=== PATIENT | male | born 1960 | race Caucasian/White ===

== ENCOUNTER 2017-10-04 14:39 | Emergency (ER) | payer BC, MEDICAID ==
[2017-10-04 16:24] LABS: ABS Basophils 0.1 10^3/ul (0-0.2); ABS Eosinophils 0.2 10^3/ul (0-0.6); ABS Lymphocytes 2.3 10^3/ul (1.0-4.8); ABS Monocytes 0.4 10^3/ul (0-0.8); ABS Neutrophils 2.7 10^3/ul (1.5-7.7); ABS Nucleated RBC 0 10^3/ul; Eosinophil % 2.8 % (0-6); Hematocrit 45 % (42-52); Hemoglobin 15.5 g/dl (14.0-18.0); Lymphocyte % 40.4 % (25-47); Mean Corpuscular HGB Conc 34 g/dl (31-36); Mean Corpuscular Hemoglobin 33 pg (27-31); Mean Corpuscular Volume 96 fL (80-94); Mean Platelet Volume 9.1 um3 (7.4-10.4); Nucleated Red Blood Cells % 0; Platelet Count 140 10^3/ul (150-450); Red Blood Count 4.69 10^6/ul (4.00-5.40); Red Cell Distribution Width 14 % (10.5-15); White Blood Count 5.7 10^3/ul (3.5-10.8)
[2017-10-04 16:30] LABS: INR 1.04 (0.77-1.02)
[2017-10-04 16:45] LABS: EGFR Non-African American 73.1 (>60)
--- NOTE | 2017-10-04 17:02 | RAD ---
INDICATION: Expressive aphasia COMPARISON: CT brain September 01, 2015 TECHNIQUE: Noncontrast axial source images were acquired from the skull base to the vertex. FINDINGS: Ventricles/sulci: The ventricles and cisterns are unchanged. There is compensatory dilatation of left lateral ventricle related to encephalomalacia in the left cerebral hemisphere. 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 No acute intracranial findings Intracranial hemorrhage:None. Extra-axial spaces: There are no abnormal extra axial fluid collections or evidence of extra-axial mass. Calvarium: There is no calvarial fracture or other calvarial abnormality. Scalp: There is no evidence of scalp or extracalvarial soft tissue abnormality. Paranasal sinuses/mastoid: The paranasal sinuses and mastoid air cells are clear. Other: Old left MCA distribution infarct. No acute findings. IMPRESSION: NEGATIVE EXAMINATION
--- NOTE | 2017-10-04 17:05 | RAD ---
Indication: Mid abdominal pain /RIGHT upper quadrant pain with eating. Comparison: No relevant prior exams available on the [facility] for comparison. Technique: RIGHT upper quadrant ultrasound. Report: Appropriate direction flow documented in the portal and hepatic veins. 15.5 cm liver is normal in echogenicity. Negative for focal hepatic lesions. Negative for intrahepatic biliary dilatation. 4 mm common bile duct. Adequately distended gallbladder with normal range 3 mm wall is without pathologic finding. Negative for sonographic Will's sign. The pancreas is obscured secondary to bowel gas and body habitus limiting assessment. Negative for ascites. 10.9 x 4.4 x 5.2 cm RIGHT kidney is unremarkable. IMPRESSION: #. No evidence for gallbladder pathology. #. Normal size liver. Negative for sonographic stigmata of fatty infiltration. Negative for focal hepatic lesions. #. The pancreas is obscured secondary to bowel gas and body habitus limiting assessment.
[2017-10-04 17:50] VITALS: BP 151/96
--- NOTE | 2017-10-06 06:44 | ED ---
GI/ HPI - HPI Summary HPI Summary: Patient is a 57-year-old homeless male living in a [facility] in [place] presenting to the ED with a six-month worsening history of abdominal pain associated with eating. History of stroke 3 years ago and has been suffering from expressive aphasia since that time. He states he takes no medications. He endorses pain to the mid epigastric region following eating small amounts of food. He endorses early satiety and states he is "never hungry." He is followed up with his PCP, however his PCP has not run any additional tests. He has no more follow-ups regarding his stroke which he was [facility]. He states his aphasia has not worsened in the past 6 months. Hx of alcohol abuse. Denies any nausea, vomiting, diarrhea. Denies any flank pain or urinary symptoms. While he endorses early satiety and not feeling hungry, he denies any weight loss. - History of Current Complaint Chief Complaint: EDAbdPain Time Seen by Provider: 10/04/17 14:44 Stated Complaint: ABD PAIN Hx Obtained From: Patient Onset/Duration: Worse Since - 6 months Timing: Constant Severity: Moderate Current Severity: Moderate Pain Intensity: 1 Location of Pain: Other - midepigastric pain Associated Signs and Symptoms: Positive: Change in Appetite Alleviating Factor(s): Nothing - Additional Pertinent History Primary Care Physician: Dr. Adrianna Cook - Allergy/Home Medications Allergies/Adverse Reactions: Allergies Allergy/AdvReac Type Severity Reaction Status Date / Time No Known Allergies Allergy Verified 05/26/15 11:21 PMH/Surg Hx/FS Hx/Imm Hx Previously Healthy: Yes Endocrine/Hematology History: Denies: Hx Anticoagulant Therapy Cardiovascular History: Reports: Hx Hypertension Respiratory History: Denies: Hx Asthma Psychiatric History: Reports: Hx Anxiety, Hx Depression, Hx Post Traumatic Stress Disorder, Hx Substance Abuse, Other Psychiatric Issues/Disorders - Insomnia, Night terrors Denies: Hx of Violent Episodes Against Others - Immunization History Hx Pertussis Vaccination: No Immunizations Up to Date: Unable to Obtain/Confirm Infectious Disease History: No Infectious Disease History: Denies: Traveled Outside the [place] in Last 30 Days - Social History Occupation: Unemployed Lives: Alone Alcohol Use: Rare Alcohol Amount: "1 beer every hour for past 2 weeks" Hx Substance Use: Yes Substance Use Type: Reports: Prescribed Hx Tobacco Use: Yes Smoking Status (MU): Light Every Day Tobacco Smoker Review of Systems Constitutional: Negative Negative: Fever, Chills, Skin Diaphoresis Negative: Palpitations, Chest Pain Negative: Shortness Of Breath, Cough Positive: Abdominal Pain. Negative: Vomiting, Diarrhea, Nausea Genitourinary: Negative Positive: no symptoms reported, see HPI Negative: Arthralgia, Myalgia Neurological: Other - expressive aphasia Negative: Headache, Weakness, Paresthesia, Numbness Psychological: Normal All Other Systems Reviewed And Are Negative: Yes Physical Exam Triage Information Reviewed: Yes Vital Signs On Initial Exam: Initial Vitals Temp Pulse Resp BP Pulse Ox 97.8 F 68 16 171/95 96 10/04/17 14:41 10/04/17 14:41 10/04/17 14:41 10/04/17 14:41 10/04/17 14:41 Vital Signs Reviewed: Yes Appearance: Positive: Well-Appearing, Well-Nourished Skin: Positive: Warm, Skin Color Reflects Adequate Perfusion Head/Face: Positive: Normal Head/Face Inspection Eyes: Positive: EOMI, SANDEE, Conjunctiva Clear Neck: Positive: Supple, No Lymphadenopathy Respiratory/Lung Sounds: Positive: Clear to Auscultation, Breath Sounds Present Cardiovascular: Positive: RRR, Pulses are Symmetrical in both Upper and Lower Extremities Abdomen Description: Positive: Nontender, Soft Neurological: Positive: Sensory/Motor Intact, Alert, Oriented to Person Place, Time, Speech Normal Psychiatric: Positive: Normal, Affect/Mood Appropriate AVPU Assessment: Alert Diagnostics - Vital Signs Vital Signs Temp Pulse Resp BP Pulse Ox 10/04/17 17:48 98.2 F 54 16 151/96 10/04/17 17:41 53 13 161/105 10/04/17 17:11 56 15 139/91 10/04/17 17:00 58 22 10/04/17 16:41 18 137/88 10/04/17 16:12 55 15 149/99 10/04/17 16:05 53 18 150/86 10/04/17 14:41 97.8 F 68 16 171/95 96 - Laboratory Lab Results: Lab Results 10/04/17 10/04/17 10/04/17 Range/Units 16:14 16:14 16:14 WBC 5.7 (3.5-10.8) 10^3/ul RBC 4.69 (4.00-5.40) 10^6/ul Hgb 15.5 (14.0-18.0) g/dl Hct 45 (42-52) % MCV 96 H (80-94) fL MCH 33 H (27-31) pg MCHC 34 (31-36) g/dl RDW 14 (10.5-15) % Plt Count 140 L (150-450) 10^3/ul MPV 9.1 (7.4-10.4) um3 Neut % (Auto) 48.2 (38-83) % Lymph % (Auto) 40.4 (25-47) % [place] % (Auto) 7.5 H (0-7) % Eos % (Auto) 2.8 (0-6) % Baso % (Auto) 1.1 (0-2) % Absolute Neuts (auto) 2.7 (1.5-7.7) 10^3/ul Absolute Lymphs (auto) 2.3 (1.0-4.8) 10^3/ul Absolute Monos (auto) 0.4 (0-0.8) 10^3/ul Absolute Eos (auto) 0.2 (0-0.6) 10^3/ul Absolute Basos (auto) 0.1 (0-0.2) 10^3/ul Absolute Nucleated RBC 0 10^3/ul Nucleated RBC % 0 INR (Anticoag Therapy) (0.77-1.02) Sodium 135 (135-145) mmol/L Potassium 4.5 (3.5-5.0) mmol/L Chloride 103 (101-111) mmol/L Carbon Dioxide 24 (22-32) mmol/L Anion Gap 8 (2-11) mmol/L BUN 15 (6-24) mg/dL Creatinine 1.05 (0.67-1.17) mg/dL Est GFR ( Amer) 88.4 (>60) Est GFR (Non-Af Amer) 73.1 (>60) BUN/Creatinine Ratio 14.3 (8-20) Glucose 91 (70-100) mg/dL Lactic Acid 0.9 (0.5-2.0) mmol/L Calcium 9.3 (8.6-10.3) mg/dL Total Bilirubin 1.00 (0.2-1.0) mg/dL AST 15 (13-39) U/L ALT 8 (7-52) U/L Alkaline Phosphatase 60 (34-104) U/L Total Protein 6.5 (6.4-8.9) g/dL Albumin 3.9 (3.2-5.2) g/dL Globulin 2.6 (2-4) g/dL Albumin/Globulin Ratio 1.5 (1-3) Serum Alcohol < 10 (<10) mg/dL 10/04/17 Range/Units 16:14 WBC (3.5-10.8) 10^3/ul RBC (4.00-5.40) 10^6/ul Hgb (14.0-18.0) g/dl Hct (42-52) % MCV (80-94) fL MCH (27-31) pg MCHC (31-36) g/dl RDW (10.5-15) % Plt Count (150-450) 10^3/ul MPV (7.4-10.4) um3 Neut % (Auto) (38-83) % Lymph % (Auto) (25-47) % Mohave % (Auto) (0-7) % Eos % (Auto) (0-6) % Baso % (Auto) (0-2) % Absolute Neuts (auto) (1.5-7.7) 10^3/ul Absolute Lymphs (auto) (1.0-4.8) 10^3/ul Absolute Monos (auto) (0-0.8) 10^3/ul Absolute Eos (auto) (0-0.6) 10^3/ul Absolute Basos (auto) (0-0.2) 10^3/ul Absolute Nucleated RBC 10^3/ul Nucleated RBC % INR (Anticoag Therapy) 1.04 H (0.77-1.02) Sodium (135-145) mmol/L Potassium (3.5-5.0) mmol/L Chloride (101-111) mmol/L Carbon Dioxide (22-32) mmol/L Anion Gap (2-11) mmol/L BUN (6-24) mg/dL Creatinine (0.67-1.17) mg/dL Est GFR ( Amer) (>60) Est GFR (Non-Af Amer) (>60) BUN/Creatinine Ratio (8-20) Glucose (70-100) mg/dL Lactic Acid (0.5-2.0) mmol/L Calcium (8.6-10.3) mg/dL Total Bilirubin (0.2-1.0) mg/dL AST (13-39) U/L ALT (7-52) U/L Alkaline Phosphatase (34-104) U/L Total Protein (6.4-8.9) g/dL Albumin (3.2-5.2) g/dL Globulin (2-4) g/dL Albumin/Globulin Ratio (1-3) Serum Alcohol (<10) mg/dL Result Diagrams: 10/04/17 16:14 10/04/17 16:14 Lab Statement: Any lab studies that have been ordered have been reviewed, and results considered in the medical decision making process. GIGU Course/Dx - Course Course Of Treatment: During the course of treatment, patient is evaluated and noted to be severely expressive aphasic. He is able to state certain words, but is intermittent in his ability to express his chief complaint. It appears he is having pain following eating and early satiety. He has not seen a GI specialist. Ultrasound Gallbladder obtained which is unremarkable. Brain CT shows no new findings compared to previous CT. I've advised the patient follow up with a GI specialist. He will also be discharged with a trial of omeprazole. - Diagnoses Provider Diagnoses: Early satiety, Midepigastric pain Discharge - Sign-Out/Discharge Documenting (check all that apply): Patient Departure - Discharge Plan Condition: Stable Disposition: HOME Prescriptions: Omeprazole 40 mg PO DAILY #30 capsule. Patient Education Materials: Omeprazole (By mouth) Referrals: No Primary Care Phys,NOPCP [Primary Care Provider] - Too Ulrich MD [Medical Doctor] - Additional Instructions: Please follow-up with Dr. Ulrich and your doctor Again as discussed, writing down your thoughts beforehand may help with the communication between you and your doctor or you and the GI specialist Omeprazole 40mg once daily x 30 days If this does not improve your symptoms after 2 weeks - you may stop taking the medication - Billing Disposition and Condition Condition: STABLE Disposition: Home
== END 2017-10-04 17:48 | disposition home or self-care (01) ==
LOC: ED 14:39
DX: R10.13 Epigastric pain (principal); R68.81 Early satiety; I69.320 Aphasia following cerebral infarction; F17.200 Nicotine dependence, unspecified, uncomplicated; Z59.0 Homelessness; Z86.59 Personal history of other mental and behavioral disorders
CPT/HCPCS: 36415; 70450; 76705; 80053; 80320; 83605; 85025; 85610; 99282; G0480

== ENCOUNTER 2017-12-02 15:44 | Observation (INO) | payer OTHER ==
--- NOTE | 2017-12-02 16:14 | ED ---
Syncope/Near Syncope - HPI Summary HPI Summary: This pt is a 57 y/o male presenting to [facility] via EMS for near syncopal episode today. Pt reports he was in the grocery store, [employer], with a cart when he became dizzy. He states he sat down. Denies LOC, syncope, or fall. Pt currently reports neck pain and headache. Denies fever, chills, chest pain, palpitations, SOB. Pt lives at home alone. PMHx includes stroke (3 years ago with right sided weakness and aphasia), HTN. Pt takes medications for chronic pain on the right side of body s/p stroke. - History Of Current Complaint Time Seen by Provider: 12/02/17 15:48 Hx Obtained From: Patient Onset/Duration: Sudden Onset, Still Present Timing: Constant Context: Other - dizziness Associated Head Trauma: No Aggravating Factor(s): Nothing Alleviating Factor(s): Nothing Associated Signs And Symptoms: Dizzy, Headache, Pain - chronic, Other - POS: neck pain. NEG: chest pain, SOB, palpitations - Allergies/Home Medications Allergies/Adverse Reactions: Allergies Allergy/AdvReac Type Severity Reaction Status Date / Time No Known Allergies Allergy Verified 05/26/15 11:21 Home Medications: Home Medications Gabapentin CAP(*) [Neurontin 400 mg CAP(*)] 800 mg PO TID 12/02/17 [History Confirmed 12/02/17] Lisinopril TAB* [Prinivil TAB*] 20 mg PO DAILY 12/02/17 [History Confirmed 12/02] PMH/Surg Hx/FS Hx/Imm Hx Endocrine/Hematology History: Denies: Hx Anticoagulant Therapy Cardiovascular History: Reports: Hx Hypertension Respiratory History: Denies: Hx Asthma Neurological History: Reports: Hx CVA Psychiatric History: Reports: Hx Anxiety, Hx Depression, Hx Post Traumatic Stress Disorder, Hx Substance Abuse, Other Psychiatric Issues/Disorders - Insomnia, Night terrors Denies: Hx of Violent Episodes Against Others Infectious Disease History: Denies: Traveled Outside the [place] in Last 30 Days - Family History Known Family History: Positive: Unknown - pt does not know - Social History Alcohol Use: Rare Alcohol Amount: "1 beer every hour for past 2 weeks" Hx Substance Use: Yes Substance Use Type: Reports: Prescribed Hx Tobacco Use: Yes Smoking Status (MU): Light Every Day Tobacco Smoker Review of Systems Negative: Fever, Chills Negative: Palpitations, Chest Pain Negative: Shortness Of Breath Musculoskeletal: Other - POS: neck pain Neurological: Other - POS: dizziness Positive: Headache. Negative: Syncope All Other Systems Reviewed And Are Negative: Yes Physical Exam - Summary Physical Exam Summary: VITAL SIGNS: Reviewed. GENERAL: Patient is a well-developed and nourished male who is lying comfortable in the stretcher. Patient is not in any acute respiratory distress. Pt is disheveled. HEAD AND FACE: No signs of trauma. No ecchymosis, hematomas or skull depressions. No sinus tenderness. EYES: PERRLA, EOMI x 2, No injected conjunctiva, no nystagmus. EARS: Hearing grossly intact. Ear canals and tympanic membranes are within normal limits. MOUTH: Oropharynx within normal limits. He has dry mouth. NECK: Supple, trachea is midline, no adenopathy, no JVD, no carotid bruit, no c- spine tenderness, neck with full ROM. CHEST: Symmetric, no tenderness at palpation LUNGS: Clear to auscultation bilaterally. No wheezing or crackles. CVS: Regular rate and rhythm, S1 and S2 present, no murmurs or gallops appreciated. ABDOMEN: Soft, non-tender. No signs of distention. No rebound, no guarding, and no masses palpated. Bowel sounds are normal. EXTREMITIES: FROM in all major joints, no edema, no cyanosis or clubbing. NEURO: Alert and oriented x 3. No acute neurological deficits. Pt has speech aphasia secondary to stroke 3 years ago. SKIN: Dry and warm GCS: 15 Triage Information Reviewed: Yes Vital Signs Reviewed: Yes Diagnostics - Laboratory Result Diagrams: 12/02/17 16:14 12/02/17 16:14 Lab Statement: Any lab studies that have been ordered have been reviewed, and results considered in the medical decision making process. - Radiology Chest XR Xray Interpretation: No Acute Changes - IMPRESSION: No evidence for acute finding. Dr. Barahona has reviewed this report. Radiology Interpretation Completed By: Radiologist - CT Brain CT CT Interpretation: No Acute Changes - IMPRESSION: 1. No evidence for acute intracranial abnormality. 2. Old left middle cerebral artery infarct. Dr. Barahona has reviewed this report. CT Interpretation Completed By: Radiologist - EKG 16:04 Cardiac Rate: NL - at 73 bpm EKG Rhythm: Sinus Rhythm EKG Interpretation: No ST elevations. Course/Dx Assessment/Plan: This pt is a 57 y/o male presenting to [facility] via EMS for near syncopal episode today. Pt reports he was in the grocery store, [employer], with a cart when he became dizzy. He states he sat down. Denies LOC, syncope, or fall. Pt currently reports neck pain and headache. Denies fever, chills, chest pain, palpitations, SOB. Pt lives at home alone. PMHx includes stroke (3 years ago with right sided weakness and aphasia), HTN. Pt takes medications for chronic pain on the right side of body s/p stroke. Blood work without any significant abnormality except for creatinine level of 1.33, glucose 128, troponin 0.01. Serum alcohol is less than 10. Chest x-ray impression: No evidence for acute findings. Head CT impression: No evidence for acute intracranial abnormality. Old left middle cerebral artery infarct. In the ED course the patient was given IV fluids, the patient seems to be hemodynamically stable. But because of his comorbidities and syncope I discussed the case with Dr. Hatfield from the hospitalist services and he accepted the patient for admission. Patient is hemodynamically stable, alert and oriented x3. - Diagnoses Differential Diagnosis/HQI/PQRI: Positive: Coronary Artery Disease, Dysrhythmia , Transient Ischemic Attack, Vasovagal Episode Provider Diagnoses: Syncope - Physician Notifications Discussed Care of Patient With: Stephen Hatfield - hospitalist Time Discussed With Above Provider: 16:55 Instructed by Provider To: Admit As Inpatient Discharge - Sign-Out/Discharge Documenting (check all that apply): Patient Departure - Admit to [facility] All imaging exams completed and their final reports reviewed: Yes - Discharge Plan Condition: Stable Disposition: ADMITTED TO [facility] - Attestation Statements Document Initiated by Scribe: Yes Documenting Scribe: Magaly Suárez Provider For Whom Scribe is Documenting (Include Credential): Jonnie Barahona MD Scribe Attestation: Magaly Pollack, scribed for Jonnie Barahona MD on 12/02/17 at 1836.
[2017-12-02 16:35] LABS: ABS Basophils 0 10^3/ul (0-0.2); ABS Eosinophils 0.1 10^3/ul (0-0.6); ABS Lymphocytes 1.3 10^3/ul (1.0-4.8); ABS Monocytes 0.4 10^3/ul (0-0.8); ABS Neutrophils 5.9 10^3/ul (1.5-7.7); ABS Nucleated RBC 0 10^3/ul; Eosinophil % 0.8 % (0-6); Hematocrit 51 % (42-52); Hemoglobin 17.5 g/dl (14.0-18.0); Lymphocyte % 17.3 % (25-47); Mean Corpuscular HGB Conc 34 g/dl (31-36); Mean Corpuscular Hemoglobin 33 pg (27-31); Mean Corpuscular Volume 97 fL (80-94); Mean Platelet Volume 9.1 um3 (7.4-10.4); Nucleated Red Blood Cells % 0.1; Platelet Count 157 10^3/ul (150-450); Red Blood Count 5.25 10^6/ul (4.00-5.40); Red Cell Distribution Width 14 % (10.5-15); White Blood Count 7.7 10^3/ul (3.5-10.8)
--- NOTE | 2017-12-02 16:40 | RAD ---
INDICATION: Syncope. COMPARISON: Comparison is made with a prior CT of the brain from October 04, 2017. TECHNIQUE: Contiguous axial sections of the brain were obtained from the skull base to the vertex without contrast. FINDINGS: The cisterns and sulci appear to be within normal limits. There is a moderate to large area of encephalomalacia present on the left side involving the left temporal and parietal lobes which is unchanged most consistent with an old left middle cerebral artery infarct. No other focal abnormality or mass effect is seen. There is no evidence for hemorrhage. No significant focal osseous abnormality is seen. The visualized portion of the paranasal sinuses and mastoid air cells appear clear. IMPRESSION: 1. NO EVIDENCE FOR ACUTE INTRACRANIAL ABNORMALITY. 2. OLD LEFT MIDDLE CEREBRAL ARTERY INFARCT.
--- NOTE | 2017-12-02 16:41 | RAD ---
INDICATION: Syncope. COMPARISON: Comparison is made with a prior study from May 26, 2015. TECHNIQUE: Dual-energy PA and lateral views of the chest were obtained. FINDINGS: The heart is within normal limits in size. Mediastinal and hilar contours appear within normal limits. The lungs are hyperinflated and clear. No pleural effusion is seen. IMPRESSION: NO EVIDENCE FOR ACUTE FINDING.
[2017-12-02 16:47] LABS: EGFR Non-African American 55.6 (>60)
[2017-12-02] MEDS ORDERED: Aspirin 81 mg CHEW TAB* 81 MG TAB.CHEW PO ONE (17:41)
[2017-12-02] MEDS ORDERED: Aspirin 81 mg CHEW TAB* 81 MG TAB.CHEW ONE (17:58)
[2017-12-02] MEDS: Gabapentin CAP(*) 400 MG PO SCH (19:58)
[2017-12-02] MEDS: ALPRAZolam TAB* 0.25 MG PO PRN (20:02)
[2017-12-02] MEDS: Heparin VIAL(*) 5000 UNITS/ML VIAL (FIVE THOUSAND) SUBCUT SCH (20:07)
--- NOTE | 2017-12-02 21:01 | RAD ---
EXAM: MR Head Without Intravenous Contrast CLINICAL HISTORY: 57 years old, male; Signs and symptoms; Dizziness and speech disturbance; Aphasia; Patient HX: Pt has an episode today when he became very plae and nearly fainted. Pt also experiencing aphasia. HX of CVA TECHNIQUE: Magnetic resonance images of the head/brain without intravenous contrast in multiple planes. COMPARISON: BRAIN WO CT BRAIN WO 12/02/2017 4:30 PM FINDINGS: Brain: Encephalomalacia in the left cervical hemisphere, compatible with chronic large left MCA territory infarct. No intracranial hemorrhage or extra-axial fluid collection. No evidence of mass effect or midline shift. No restricted diffusion to suggest acute infarct. Ventricles: Ex vacuo dilatation of the left lateral ventricle. No other hydrocephalus. Bones/joints: Unremarkable. Sinuses: Unremarkable as visualized. No acute sinusitis. Mastoid air cells: Unremarkable as visualized. No mastoid effusion. Orbits: Unremarkable as visualized. IMPRESSION: 1. No MR evidence of acute infarct. 2. Chronic large left MCA territory infarct. To contact [facility] with a general question: [facility] - [phone] For direct physician to physician contact: Physician Hotline - [phone] [facility] ([facility] Facility ID #[id number])
--- NOTE | 2017-12-02 22:46 | HP ---
ADMISSION HISTORY AND PHYSICAL: DATE OF ADMISSION: 12/02/17 PRIMARY CARE PROVIDER: None. ATTENDING FOR THIS ADMISSION: Stephen Hatfield MD * (DICTATED BY TSERING NOBLE NP) CHIEF COMPLAINT: Dizziness with some chest pressure. HISTORY OF PRESENT ILLNESS: This is a 57-year-old male patient with past medical history of hypertension, CVA, and depression that presented when emergency services were called when the patient was in [facility], he described having a feeling of dizziness and spinning in his head and then also described a diffuse pressure across his chest. A bystander assisted the patient to sitting down on the floor. She was afraid he was going to fall over and 911 was called. Ambulance services brought the patient in, placing him on oxygen on the way. The patient states the oxygen did help his symptoms and he felt better after the oxygen mask was placed on his face. For these reasons, we were asked to evaluate the patient for admission. PAST MEDICAL HISTORY: Significant for: 1. Hypertension. 2. CVA in 2016. 3. Depression. 4. Remote history of alcohol abuse. PAST SURGICAL HISTORY: Significant for: 1. ORIF of the left hip. 2. Appendectomy. 3. Hernia repair. MEDICATIONS: At home include: 1. Lisinopril 20 mg daily. 2. Gabapentin 800 mg 3 times a day. It does appear in the record that the patient was on an antidepressant and anxiolytics, currently not taking. The patient does express that he does not have a primary care provider and is having difficulty obtaining his medications. ALLERGIES: No known drug allergies. FAMILY HISTORY: Unable to obtain. SOCIAL HISTORY: The patient is a daily everyday smoker, 1 pack per day. Alcohol, the patient states his last drink was 5 or 6 days ago and before that it was greater than 1 year ago. Healthcare proxy, none. The patient states that he lives by himself and he has no family, friends, or other people for which we can call in case of emergency. REVIEW OF SYSTEMS: The patient is feeling what he describes as better now. Denies dizziness. Denies chest pain. Denies shortness of breath. Denies any nausea or vomiting. He has some baseline pain down the right lower extremity secondary to neuropathic changes after his stroke, which is at his baseline. No further arthralgias or myalgias and no further constitutional complaints. PHYSICAL EXAMINATION GENERAL: The patient is alert, very disheveled, looking somewhat tearful at times. VITAL SIGNS: Blood pressure 127/77, heart rate 76, O2 saturation 96% on room air, respiratory rate 16, temperature of 97.7. HEENT: The patient is atraumatic, normocephalic. PERRLA. Anicteric sclerae. Oral mucosa is moist. Tongue is midline. NECK: Supple, nontender. No JVD noted. No carotid bruits auscultated. LUNGS: Clear bilaterally to auscultation with good air entry. No wheezing, rhonchi, or rales noted. CARDIOVASCULAR: S1, S2 present. No murmurs, gallops, or rubs noted. Rate and rhythm are regular. ABDOMEN: Soft, nontender, nondistended. Positive bowel sounds in all 4 quadrants. : Deferred. MUSCULOSKELETAL: There is no clubbing, no cyanosis, and no edema. He does have some palpable pain down the right thigh. Seems to be hypersensitive to any tactile stimulation on the skin on that side. Again, this is his baseline. NEUROLOGIC: He has significant expressive aphasia. Can make his needs known, but does express word searching. Per the patient's report, this is his current baseline and he does not feel it is any worse at this time. PSYCHIATRIC: He is cooperative and appropriate, albeit tearful and does appear to be frustrated and depressed with his current situation. LABORATORY DATA: WBC 7.7, RBC 5.25, hemoglobin 17.5, hematocrit 51, MCV 97, MCH 33, platelets 157,000. Sodium 138, potassium 3.5, chloride 102, CO2 of 28, BUN 12, creatinine 1.33, and glucose 128. Lactic acid 1.8. Calcium 9.9. Magnesium 2.1. Bilirubin 1.10, AST 14, ALT 12, alk phos 72. Ammonia 38. Creatine kinase 39. Troponin is negative at 0.00. BNP is 10. Total protein 6.8. Albumin 4.3, globulin 2.5, and TSH 0.64. Serum alcohol level is less than 10. APTT is 27.8. IMAGING: Chest x-ray dated 12/02/17 shows no acute cardiopulmonary process. CAT scan of the brain also dated today shows cisterns and sulci appear to be within normal limits. There was a moderate to large area of encephalomalacia present on the left side involving the left temporal and parietal lobes which is unchanged, most consistent with an old left middle cerebral artery infarct. No other focal abnormality or mass effect is seen. There was no evidence for hemorrhage. No significant focal osseous abnormality is seen. The visualized portion of paranasal sinuses, mastoid air cells appear clear. No new or acute pathology noted on the CAT scan of the brain. IMPRESSION: This is a 57-year-old male with history significant for expressive aphasia as a late deficit from previous cerebrovascular accident who presents to the emergency department with a complaint of dizziness and some chest pressure, which resolved with placement of oxygen. PLAN: The patient has been admitted to observation service on telemetry. DIAGNOSES: 1. Dizziness and chest pressure. Etiology unclear. At this point, I feel because the patient has not had a recent cardiac workup and has not had followup in the community, it would be warranted to do a stress test and echocardiogram. The patient's EKG does not show any acute findings. There are no acute ST segment changes and it appears he has similar EKG in 2016 but it does look like he has had an inferior infarct and old Q waves in leads II, III and aVF. Again, this is not a sudden change from 2016. However, the patient has not had any followup in the community. So, we will also get an echocardiogram to evaluate his left ventricular function. He has had a CAT scan already of the brain. It is difficult to tell whether this episode is a neurologic event secondary to his encephalomalacia or cardiac event, but given his history of this large cerebrovascular accident and the patient has not been on aspirin or any sort of anticoagulation in the past or any kind of antiplatelet therapy, I feel that an MRI in the morning would also be helpful. If there are any acute findings on the MRI or his cardiac workup, we can involve neurology and/or cardiology to assist. 2. For his hypertension, we will keep him on his lisinopril. I have added baby aspirin. 3. For his history of depression, he was on an SSRI in the past but not currently and also had admission to [facility] in the past. He does appear anxious and tearful. I will order some Xanax low dose to assist with some of his anxiety. Diet. He can have a heart healthy diet and then n.p.o. after midnight in anticipation of a stress test. Fluids, electrolytes, and nutrition. The patient appears euvolemic. Electrolytes are within normal range and diet as stated above. Activity. He can be out of bed as tolerated. DVT prophylaxis. Heparin 5000 units q.8 hours. subQ Code status. The patient is a full code. I also would like to involve social work on this case. The patient is very disheveled. It does appear that he has not had good hygiene. His hair is matted. His fingernails are long and dirty. The patient states he has no support and nobody to help, so I think getting social work involved to ensure that after this workup is complete that the patient is going to have a safe discharge and have the resources that he needs in the community. The rest of the patient's course will be determined by further diagnostics, laboratories, and any other input from other providers as warranted during this admission. This plan has been coordinated with Dr. Hatfield, the attending physician on this case. Time Spent: 45 minutes. TSERING NOBLE NP [id number]/CPS #: [id number] GERALD
[2017-12-03] MEDS: Heparin VIAL(*) 5000 UNITS/ML VIAL (FIVE THOUSAND) SUBCUT SCH ×3 (05:16→20:10)
[2017-12-03] MEDS: Omeprazole CAP* 20 MG PO SCH (05:16)
[2017-12-03] MEDS: Acetaminophen TAB* 325 MG PO PRN ×2 (05:17→20:55)
[2017-12-03] MEDS ORDERED: NS 0.9% 1000 ML* 1,000 ML IV SCH (05:45)
[2017-12-03] MEDS: Lisinopril TAB* 10 MG PO SCH (07:38)
[2017-12-03] MEDS: Gabapentin CAP(*) 400 MG PO SCH ×3 (07:38→20:09)
[2017-12-03] MEDS ORDERED: Regadenoson* 0.4 MG/5 ML SYRINGE ONE (09:50)
--- NOTE | 2017-12-03 11:56 | RAD ---
Edited for charges. INDICATION: Chest pressure, dizziness. COMPARISON: There are no relevant prior studies available for comparison. Technique: A single day myocardial perfusion stress study was performed. Initially the resting study was performed. The patient was given an intravenous injection of 10.9 mCi of technetium 99m tetrofosmin and and the heart was imaged in multiple projections. The patient returned later in the day and under the direction of Dr. Lowry, the patient was given intervenous injection of Lexiscan. Subsequently the patient was given intravenous injection of 25.3 mCi of technetium 99m tetrofosmin and the heart was imaged in multiple projections. Images were reconstructed in the axial, sagittal and coronal planes and in a 3- D format. FINDINGS: There appears to be normal wall motion and myocardial thickening. The left ventricular ejection fraction was calculated to be 64%. Review of the images demonstrates decreased activity in the inferior wall on both the post pharmacologic stress and resting images which is no longer present on the attenuation corrected images consistent with attenuation artifact. No other focal abnormalities are seen. IMPRESSION: NO EVIDENCE FOR INFARCT OR ISCHEMIA. ASSESSMENT: Low risk. Based on imaging criteria from ACC/AHA 2002 Guideline Update for the Management of Patients With Chronic Stable Angina Table 23. Noninvasive Risk Stratification. MTDD
[2017-12-03] MEDS: Sucralfate TAB* 1 GM PO SCH ×3 (14:18→23:32)
--- NOTE | 2017-12-03 17:36 | PN ---
Subjective Date of Service: 12/03/17 Interval History: Patient seen and examined. Pending ECHO completion, seems to be improved today. Denies chest pain, no dizziness, no further complaints. Objective Active Medications: Acetaminophen (Tylenol Tab*) 650 mg PO Q6H PRN PRN Reason: FEVER/HEADACHE Last Admin: 12/03/17 05:17 Dose: 650 mg Alprazolam (Xanax Tab*) 0.25 mg PO BID PRN PRN Reason: ANXIETY Last Admin: 12/02/17 20:02 Dose: 0.25 mg Gabapentin (Neurontin Cap(*)) 800 mg PO TID [facility] Last Admin: 12/03/17 13:13 Dose: 800 mg Heparin Sodium (Porcine) (Heparin Vial(*)) 5,000 units SUBCUT Q8HR [facility] Last Admin: 12/03/17 13:13 Dose: 5,000 units Lisinopril (Prinivil Tab*) 20 mg PO DAILY [facility] Last Admin: 12/03/17 07:38 Dose: 20 mg Omeprazole (Prilosec Cap*) 20 mg PO DAILY@0600 [facility] Last Admin: 12/03/17 05:16 Dose: 20 mg Sucralfate (Carafate*) 1 gm PO QID [facility] Last Admin: 12/03/17 14:18 Dose: 1 gm Vital Signs - 8 hr 12/03/17 12/03/17 11:33 13:13 Temperature 98.8 F Pulse Rate 63 Respiratory 20 18 Rate Blood Pressure 117/73 (mmHg) O2 Sat by Pulse 100 Oximetry Oxygen Devices in Use Now: None Appearance: alert, NAD Eyes: No Scleral Icterus, PERRLA Ears/Nose/Mouth/Throat: NL Teeth, Lips, Gums, Mucous Membranes Moist Neck: NL Appearance and Movements; NL JVP, Trachea Midline Respiratory: Symmetrical Chest Expansion and Respiratory Effort, Clear to Auscultation Cardiovascular: NL Sounds; No Murmurs; No JVD, RRR Abdominal: NL Sounds; No Tenderness; No Distention Extremities: No Edema, No Clubbing, Cyanosis Neurological: Alert and Oriented x 3, - - chronic neuropathic pain right side Nutrition: Taking PO's Result Diagrams: 12/02/17 16:14 12/02/17 16:14 Diagnostic Imaging: Patient Name: TIFFANI TRAN Medical Record#: [id number] Ordering Physician: Cele Fernandes [employer] Acct.#: [id number] : 1960 Age: 57 Sex: M Location: [address] [place] [address] Ex[facility] Date: 12/02/171805 ADM Status: ADM Prashanth Order Information: MRI BRAIN W/O Accession Number: [id number] CPT: 46141 EXAM: MR Head Without Intravenous Contrast CLINICAL HISTORY: 57 years old, male; Signs and symptoms; Dizziness and speech disturbance; Aphasia; Patient HX: Pt has an episode today when he became very plae and nearly fainted. Pt also experiencing aphasia. HX of CVA TECHNIQUE: Magnetic resonance images of the head/brain without intravenous contrast in multiple planes. COMPARISON: BRAIN WO CT BRAIN WO 12/02/2017 4:30 PM FINDINGS: Brain: Encephalomalacia in the left cervical hemisphere, compatible with chronic large left MCA territory infarct. No intracranial hemorrhage or extra-axial fluid collection. No evidence of mass effect or midline shift. No restricted diffusion to suggest acute infarct. Ventricles: Ex vacuo dilatation of the left lateral ventricle. No other hydrocephalus. Bones/joints: Unremarkable. Sinuses: Unremarkable as visualized. No acute sinusitis. Mastoid air cells: Unremarkable as visualized. No mastoid effusion. Orbits: Unremarkable as visualized. IMPRESSION: 1. No MR evidence of acute infarct. 2. Chronic large left MCA territory infarct. Patient Name: TIFFANI TRAN Medical Record#: [id number] Ordering Physician: Cele Fernandes [employer] Acct.#: [id number] : 1960 Age: 57 Sex: M Location: [address] [place], [place] [address] Exam Date: 12/03/171742 ADM Status: ADM Prashanth Order Information: NUCLEAR CARDIAC STRESS TEST Accession Number: [id number] CPT: 56044 INDICATION: Chest pressure, dizziness. COMPARISON: There are no relevant prior studies available for comparison. Technique: A single day myocardial perfusion stress study was performed. Initially the resting study was performed. The patient was given an intravenous injection of 10.9 mCi of technetium 99m tetrofosmin and and the heart was imaged in multiple projections. The patient returned later in the day and under the direction of Dr. Lowry, the patient was given intervenous injection of Lexiscan. Subsequently the patient was given intravenous injection of 25.3 mCi of technetium 99m tetrofosmin and the heart was imaged in multiple projections. Images were reconstructed in the axial, sagittal and coronal planes and in a 3- D format. FINDINGS: There appears to be normal wall motion and myocardial thickening. The left ventricular ejection fraction was calculated to be 64%. Review of the images demonstrates decreased activity in the inferior wall on both the post pharmacologic stress and resting images which is no longer present on the attenuation corrected images consistent with attenuation artifact. No other focal abnormalities are seen. IMPRESSION: NO EVIDENCE FOR INFARCT OR ISCHEMIA. ASSESSMENT: Low risk. Based on imaging criteria from ACC/AHA 2002 Guideline Update for the Management of Patients With Chronic Stable Angina Table 23. Noninvasive Risk Stratification. <Electronically signed by Sachin Herring MD in OV> 12/03/17 1153 Dictated By: Sachin Herring MD Dictated Date/Time: 12/03/17 1153 Transcribed Date/Time: 12/03/17 1147 Copy to: Assess/Plan/Problems-Billing Assessment: This is a 57 year old male with history of large CVA in the past that presents with chest pressure and near syncopal event. - Patient Problems (1) Near syncope Comment: - Imaging as above, no acute neuro pathology - Large area of encephalomalacia from previous CVA - Pending ECHO, stress test is low risk (2) Depressive disorder Onset Date: 02/23/15 Code(s): F32.9 - MAJOR DEPRESSIVE DISORDER, SINGLE EPISODE, UNSPECIFIED SNOMED Code(s): 33659351 Comment: - Appears to be related to social issues and residual stroke deficits - Social work consulted, there is an open APS case with rehabilitation case coordinator assigned - Popeye RONDON (3) History of cerebrovascular accident with residual deficit Code(s): I69.30 - UNSPECIFIED SEQUELAE OF CEREBRAL INFARCTION SNOMED Code(s): 999172112 Comment: - Speech/swallow eval, as patient states he has difficulty eating - PPI daily and carafate added before meals - Regular diet recommended by speech - Nutrition following, high risk for malnutrition but unable to ascertain base weight - Continue gabapentin TID for neuropathic pain - Unclear as to whether patient was recommended to be on anti-platelet therapy - Will given aspirin, recommend ASA at discharge Status and Disposition: Coordinate discharge with social work to ensure APS will meet patient at his trailer and assist with resources and medications for safe discharge. Recommend follow up with [facility] and find a PCP to follow in the community.
[2017-12-03 18:14] LABS: Urine Appearance Clear; Urine Blood Negative (Negative); Urine Color Yellow; Urine Ketones Negative (Negative); Urine Protein Negative (Negative); Urine Specific Gravity 1.006 (1.010-1.030); Urine Urobilinogen Negative (Negative)
--- NOTE | 2017-12-03 18:34 | ECHO ---
Patient: TIFFANI TRAN [facility] Rec#: [id number] : 1960 Date: 12/03/2017 Age: 57y Height: 178 cm / 70.1 in Weight: 73 kg / 160.9 lbs Sex: M BSA: 1.9 Room#: [facility] Admit Date#: 12/02/2017 Type: Inpatient Referring: Cele Bernard Reading: Flaco García DO Family Consultant: Ernestina Mckenzie RDCS Transthoracic Echocardiogram Indication: CP/ Near Syncope BP: 108/82 HR: 54 Rhythm: Bradycardia Findings History: CVA,HTN,anxiety/depression,PTSD,substance abuse,ETOH abuse, smoker. Technical Comments: The study quality is fair. Completed at 1500. The study is technically limited due to the patient's smoking history. Left Ventricle: The left ventricular chamber size is normal. Mild concentric left ventricular hypertrophy is observed. Global left ventricular wall motion and contractility are within normal limits. There is normal left ventricular systolic function. The estimated ejection fraction is 60-65%. There is no consistent Doppler evidence of clinically significant diastolic dysfunction. Left Atrium: The left atrial chamber size is normal. Right Ventricle: The right ventricular chamber size and systolic function are within normal limits. Right Atrium: The right atrial cavity size is normal. Aortic Valve: The aortic valve is trileaflet. There is mild aortic regurgitation. There is no evidence of aortic stenosis. Mitral Valve: The mitral valve leaflets are mildly thickened. There is a trace of mitral regurgitation. There is no evidence of mitral stenosis. Tricuspid Valve: The tricuspid valve leaflets are normal. There is trace to mild tricuspid regurgitation. No pulmonary hypertension is noted. There is no tricuspid stenosis. Pulmonic Valve: The pulmonic valve appears normal in structure and function. There is no evidence of pulmonic regurgitation. There is no pulmonic stenosis. Pericardium: The pericardium appears normal. Aorta: There is mild dilatation of the ascending aorta. There is no dilatation of the aortic arch. There is moderate dilatation of the aortic root. Pulmonary Artery: The main pulmonary artery is not well visualized. Venous: The venous system is not well visualized. Conclusions The left ventricular chamber size is normal. Mild concentric left ventricular hypertrophy is observed. Global left ventricular wall motion and contractility are within normal limits. There is normal left ventricular systolic function. The estimated ejection fraction is 60-65%. The left atrial chamber size is normal. The right ventricular chamber size and systolic function are within normal limits. No more than mild valvular regurgitation noted There is mild dilatation of the ascending aorta. There is moderate dilatation of the aortic root. None prior for comparison at time of interpretation Measurements Name Value Normal Range RVIDd (AP) 2D 2.7 cm (0.9 - 2.6) RVDdMajor (2D) 2.7 cm (2.2 - 4.4) RAd ISD 4CH 4.9 cm (3.4 - 4.9) RA (A4C)W 3.5 cm (2.9 - 4.6) IVSd (2D) 1 cm (0.6 - 1) LVPWd (2D) 1.05 cm (0.6 - 1) LVIDd (2D) 4.4 cm (3.6 - 5.4) LVIDs (2D) 4.1 cm - Aortic Annulus 2.4 cm (1.4 - 2.6) Ao root diameter (2D) 4.5 cm (2.1 - 3.5) Ascending Ao 3.8 cm (2.1 - 3.4) Aortic arch 2.8 cm (1.8 - 3.4) Descending Ao 0.9 cm - LA dimension (AP) 2D 2.8 cm (2.3 - 3.8) LAd ISD 4CH 4.1 cm (2.9 - 5.3) LA ISD 4CH W 3.6 cm (2.5 - 4.5) Name Value Normal Range LA ESV SP 4CH (A/L) 13 ml - LA ESV SP 2CH (A/L) 18 ml - LA ESV BP (A/L) index 15.3 ml/m2 - Name Value Normal Range MV E-wave Vmax 0.7 m/sec - MV deceleration time 341 msec - MV A-wave Vmax 0.8 m/sec - MV E:A ratio 0.9 ratio - LV septal e' Vmax 0.08 m/sec - LV lateral e' Vmax 0.06 m/sec - LV E:e' septal ratio 8.75 ratio - LV E:e' lateral ratio 11.67 ratio - Name Value Normal Range AV Vmax 1.1 m/sec - AV VTI 25 cm - AV peak gradient 5 mmHg - AV mean gradient 2 mmHg - LVOT Vmax 0.9 m/sec - LVOT VTI 18.5 cm - LVOT peak gradient 3 mmHg - LVOT mean gradient 1 mmHg - AR PHT 300 msec - Name Value Normal Range TR Vmax 2.2 m/sec - TR peak gradient 19 mmHg - RAP 8 mmHg - RVSP 27 mmHg - Name Value Normal Range PV Vmax 0.8 m/sec - PV peak gradient 2 mmHg -
[2017-12-03] MEDS: Aspirin 81 mg CHEW TAB* 81 MG TAB.CHEW PO SCH (20:09)
[2017-12-03] MEDS: ALPRAZolam TAB* 0.25 MG PO PRN (20:56)
[2017-12-04] MEDS: Omeprazole CAP* 20 MG PO SCH (04:59)
[2017-12-04] MEDS: Heparin VIAL(*) 5000 UNITS/ML VIAL (FIVE THOUSAND) SUBCUT SCH ×3 (05:00→21:46)
[2017-12-04] MEDS ORDERED: Pneumococcal *Vac Polyvalent 0.5 ML VIAL IM ONE (09:00)
[2017-12-04] MEDS: Aspirin 81 mg CHEW TAB* 81 MG TAB.CHEW PO SCH (09:03)
[2017-12-04] MEDS: Gabapentin CAP(*) 400 MG PO SCH ×3 (09:04→21:45)
[2017-12-04] MEDS: Lisinopril TAB* 10 MG PO SCH (09:05)
[2017-12-04] MEDS: Sucralfate TAB* 1 GM PO SCH ×4 (11:31→23:40)
--- NOTE | 2017-12-04 17:10 | PN ---
Subjective Date of Service: 12/04/17 Interval History: patient with expressive aphasia, difficulty with word finding . Denies MERRILL or dizziness. Denies chest pain or shortness of breath. denies abd pain n/v/d. Nursing staff reports that patient reports he wants to kill himself. Family History: Unchanged from Admission Social History: Unchanged from Admission Past Medical History: Unchanged from Admission Objective Active Medications: Acetaminophen (Tylenol Tab*) 650 mg PO Q6H PRN PRN Reason: FEVER/HEADACHE Last Admin: 12/03/17 20:55 Dose: 650 mg Alprazolam (Xanax Tab*) 0.25 mg PO BID PRN PRN Reason: ANXIETY Last Admin: 12/03/17 20:56 Dose: 0.25 mg Aspirin (Aspirin 81 Mg Chew Tab*) 81 mg PO DAILY [facility] Last Admin: 12/04/17 09:03 Dose: 81 mg Gabapentin (Neurontin Cap(*)) 800 mg PO TID [facility] Last Admin: 12/04/17 15:00 Dose: 800 mg Heparin Sodium (Porcine) (Heparin Vial(*)) 5,000 units SUBCUT Q8HR [facility] Last Admin: 12/04/17 14:59 Dose: 5,000 units Lisinopril (Prinivil Tab*) 20 mg PO DAILY [facility] Last Admin: 12/04/17 09:05 Dose: 20 mg Omeprazole (Prilosec Cap*) 20 mg PO DAILY@0600 [facility] Last Admin: 12/04/17 04:59 Dose: 20 mg Sucralfate (Carafate*) 1 gm PO QID [facility] Last Admin: 12/04/17 14:59 Dose: 1 gm Vital Signs - 8 hr 12/04/17 12/04/17 12/04/17 11:52 12:03 15:00 Temperature 98.2 F Pulse Rate 65 Respiratory 22 16 20 Rate Blood Pressure 141/79 (mmHg) O2 Sat by Pulse 99 Oximetry 12/04/17 15:13 Temperature 97.6 F Pulse Rate 58 Respiratory 16 Rate Blood Pressure 104/63 (mmHg) O2 Sat by Pulse 97 Oximetry Oxygen Devices in Use Now: None Appearance: appears comfortable resting in bed. no acute distress Eyes: No Scleral Icterus Ears/Nose/Mouth/Throat: Clear Oropharnyx, Mucous Membranes Moist Neck: NL Appearance and Movements; NL JVP, Trachea Midline Respiratory: Symmetrical Chest Expansion and Respiratory Effort, Clear to Auscultation Cardiovascular: NL Sounds; No Murmurs; No JVD, No Edema Abdominal: NL Sounds; No Tenderness; No Distention Extremities: No Edema, No Clubbing, Cyanosis Skin: No Rash or Ulcers Neurological: Alert and Oriented x 3 Result Diagrams: 12/02/17 16:14 12/02/17 16:14 Diagnostic Imaging: Patient Name: TIFFANI TRAN Medical Record#: [id number] Ordering Physician: Cele Fernandes NP Acct.#: [id number] : 1960 Age: 57 Sex: M Location: [address] [place] [address]/[employer] Exam Date: 12/02/17 180 ADM Status: ADM Prashanth Order Information: MRI BRAIN W/O Accession Number: [id number] CPT: 32949 EXAM: MR Head Without Intravenous Contrast CLINICAL HISTORY: 57 years old, male; Signs and symptoms; Dizziness and speech disturbance; Aphasia; Patient HX: Pt has an episode today when he became very plae and nearly fainted. Pt also experiencing aphasia. HX of CVA TECHNIQUE: Magnetic resonance images of the head/brain without intravenous contrast in multiple planes. COMPARISON: BRAIN WO CT BRAIN WO 12/02/2017 4:30 PM FINDINGS: Brain: Encephalomalacia in the left cervical hemisphere, compatible with chronic large left MCA territory infarct. No intracranial hemorrhage or extra-axial fluid collection. No evidence of mass effect or midline shift. No restricted diffusion to suggest acute infarct. Ventricles: Ex vacuo dilatation of the left lateral ventricle. No other hydrocephalus. Bones/joints: Unremarkable. Sinuses: Unremarkable as visualized. No acute sinusitis. Mastoid air cells: Unremarkable as visualized. No mastoid effusion. Orbits: Unremarkable as visualized. IMPRESSION: 1. No MR evidence of acute infarct. 2. Chronic large left MCA territory infarct. Patient Name: TIFFANI TRAN Medical Record#: [id number] Ordering Physician: Cele Fernandes NP Acct.#: [id number] : 1960 Age: 57 Sex: M Location: [address] [place] [address] Exam Date: 12/03/17 1743 ADM Status: ADM Prashanth Order Information: NUCLEAR CARDIAC STRESS TEST Accession Number: [id number] CPT: 88200 INDICATION: Chest pressure, dizziness. COMPARISON: There are no relevant prior studies available for comparison. Technique: A single day myocardial perfusion stress study was performed. Initially the resting study was performed. The patient was given an intravenous injection of 10.9 mCi of technetium 99m tetrofosmin and and the heart was imaged in multiple projections. The patient returned later in the day and under the direction of Dr. Lowry, the patient was given intervenous injection of Lexiscan. Subsequently the patient was given intravenous injection of 25.3 mCi of technetium 99m tetrofosmin and the heart was imaged in multiple projections. Images were reconstructed in the axial, sagittal and coronal planes and in a 3- D format. FINDINGS: There appears to be normal wall motion and myocardial thickening. The left ventricular ejection fraction was calculated to be 64%. Review of the images demonstrates decreased activity in the inferior wall on both the post pharmacologic stress and resting images which is no longer present on the attenuation corrected images consistent with attenuation artifact. No other focal abnormalities are seen. IMPRESSION: NO EVIDENCE FOR INFARCT OR ISCHEMIA. ASSESSMENT: Low risk. Based on imaging criteria from ACC/AHA 2002 Guideline Update for the Management of Patients With Chronic Stable Angina Table 23. Noninvasive Risk Stratification. <Electronically signed by Sachin Herring MD in [place]> 12/03/17 1153 Dictated By: Sachin Herring MD Dictated Date/Time: 12/03/17 1153 Transcribed Date/Time: 12/03/17 1147 Copy to: Assess/Plan/Problems-Billing Assessment: This is a 57 year old male with history of large CVA in the past that presents with chest pressure and near syncopal event. - Patient Problems (1) Near syncope Current Visit: Yes Status: Acute Comment: - Imaging as above, no acute neuro pathology - Large area of encephalomalacia from previous CVA - stress test is low risk - ECHO EF 60-65% - WNL (2) History of cerebrovascular accident with residual deficit Current Visit: Yes Status: Acute Code(s): I69.30 - UNSPECIFIED SEQUELAE OF CEREBRAL INFARCTION SNOMED Code(s): 027085682 Comment: - Speech/swallow eval, as patient states he has difficulty eating - PPI daily and carafate added before meals - Regular diet recommended by speech - Nutrition following, high risk for malnutrition but unable to ascertain base weight - Continue gabapentin TID for neuropathic pain - Unclear as to whether patient was recommended to be on anti-platelet therapy - Will given aspirin, recommend ASA at discharge (3) Depressive disorder Current Visit: No Status: Acute Priority: High Onset Date: 02/23/15 Code (s): F32.9 - MAJOR DEPRESSIVE DISORDER, SINGLE EPISODE, UNSPECIFIED SNOMED Code(s): 68557883 Comment: - Appears to be related to social issues and residual stroke deficits - Social work consulted, there is an open APS case with porter sample case assigned - Xanax PRN - uncertain if patient has difficult making meals at home, - patient is not interested in meals on wheels - patient was making comments to nursing staff today that he wants to kill himself- will continue with consult with psych (4) DVT prophylaxis Current Visit: Yes Status: Acute Code(s): [id number] - SNOMED Code(s): 521432242 Comment: HSQ (5) Full code status Current Visit: Yes Status: Acute Code(s): Z78.9 - OTHER SPECIFIED HEALTH STATUS SNOMED Code(s): 389589407 Status and Disposition: Coordinate discharge with social work to ensure APS will meet patient at his trailer and assist with resources and medications for safe discharge. Recommend follow up with [facility] and find a PCP to follow in the community.
[2017-12-05] MEDS: Heparin VIAL(*) 5000 UNITS/ML VIAL (FIVE THOUSAND) SUBCUT SCH ×3 (05:50→22:08)
[2017-12-05] MEDS: Omeprazole CAP* 20 MG PO SCH (05:51)
[2017-12-05] MEDS ORDERED: Pneumococcal *Vac Polyvalent 0.5 ML VIAL IM ONE (09:00)
[2017-12-05] MEDS: Aspirin 81 mg CHEW TAB* 81 MG TAB.CHEW PO SCH (09:31)
[2017-12-05] MEDS: Lisinopril TAB* 10 MG PO SCH (09:31)
[2017-12-05] MEDS: Gabapentin CAP(*) 400 MG PO SCH ×3 (09:31→22:07)
[2017-12-05] MEDS: Sucralfate TAB* 1 GM PO SCH ×4 (09:32→22:07)
--- NOTE | 2017-12-05 18:10 | PN ---
Subjective Date of Service: 12/05/17 Interval History: patient reports that he feels severely depressed. states that he has no family support at home, unclear if he is having difficulty affording his medications an d meals. States that he want to kill himself but does not have a plan. denies chest pain or shortness of breath. denies abd pain, n/v/d. Family History: Unchanged from Admission Social History: Unchanged from Admission Past Medical History: Unchanged from Admission Objective Active Medications: Acetaminophen (Tylenol Tab*) 650 mg PO Q6H PRN PRN Reason: FEVER/HEADACHE Last Admin: 12/03/17 20:55 Dose: 650 mg Alprazolam (Xanax Tab*) 0.25 mg PO BID PRN PRN Reason: ANXIETY Last Admin: 12/03/17 20:56 Dose: 0.25 mg Aspirin (Aspirin 81 Mg Chew Tab*) 81 mg PO DAILY [facility] Last Admin: 12/05/17 09:31 Dose: 81 mg Gabapentin (Neurontin Cap(*)) 800 mg PO TID [facility] Last Admin: 12/05/17 13:38 Dose: 800 mg Heparin Sodium (Porcine) (Heparin Vial(*)) 5,000 units SUBCUT Q8HR [facility] Last Admin: 12/05/17 13:38 Dose: 5,000 units Lisinopril (Prinivil Tab*) 20 mg PO DAILY [facility] Last Admin: 12/05/17 09:31 Dose: 20 mg Omeprazole (Prilosec Cap*) 20 mg PO DAILY@0600 [facility] Last Admin: 12/05/17 05:51 Dose: 20 mg Sucralfate (Carafate*) 1 gm PO QID [facility] Last Admin: 12/05/17 17:27 Dose: 1 gm Vital Signs - 8 hr 12/05/17 12/05/17 12/05/17 11:21 13:38 15:51 Temperature 98.5 F 98.5 F Pulse Rate 58 56 Respiratory 16 16 16 Rate Blood Pressure 131/79 109/73 (mmHg) O2 Sat by Pulse 98 98 Oximetry Oxygen Devices in Use Now: None Appearance: appears depressed , no acute distress Eyes: No Scleral Icterus Ears/Nose/Mouth/Throat: Clear Oropharnyx, Mucous Membranes Moist Neck: NL Appearance and Movements; NL JVP, Trachea Midline Respiratory: Symmetrical Chest Expansion and Respiratory Effort, Clear to Auscultation Cardiovascular: NL Sounds; No Murmurs; No JVD, No Edema Abdominal: NL Sounds; No Tenderness; No Distention Extremities: No Edema, No Clubbing, Cyanosis Skin: No Rash or Ulcers Neurological: Alert and Oriented x 3 - hand operational risk manager equal, tongue midline, neuro checks intact, does have expressive aphasia Nutrition: Taking PO's Result Diagrams: 12/02/17 16:14 12/02/17 16:14 Diagnostic Imaging: Patient Name: TIFFANI TRAN Medical Record#: [id number] Ordering Physician: Cele Fernandes WRECKER OPERATOR Acct.#: [id number] : 1960 Age: 57 Sex: M Location: [address] [place] [address] Exam Date: 12/02/171805 ADM Status: ADM Prashanth Order Information: MRI BRAIN W/O Accession Number: [id number] CPT: 47813 EXAM: MR Head Without Intravenous Contrast CLINICAL HISTORY: 57 years old, male; Signs and symptoms; Dizziness and speech disturbance; Aphasia; Patient HX: Pt has an episode today when he became very plae and nearly fainted. Pt also experiencing aphasia. HX of CVA TECHNIQUE: Magnetic resonance images of the head/brain without intravenous contrast in multiple planes. COMPARISON: BRAIN WO CT BRAIN WO 12/02/2017 4:30 PM FINDINGS: Brain: Encephalomalacia in the left cervical hemisphere, compatible with chronic large left MCA territory infarct. No intracranial hemorrhage or extra-axial fluid collection. No evidence of mass effect or midline shift. No restricted diffusion to suggest acute infarct. Ventricles: Ex vacuo dilatation of the left lateral ventricle. No other hydrocephalus. Bones/joints: Unremarkable. Sinuses: Unremarkable as visualized. No acute sinusitis. Mastoid air cells: Unremarkable as visualized. No mastoid effusion. Orbits: Unremarkable as visualized. IMPRESSION: 1. No MR evidence of acute infarct. 2. Chronic large left MCA territory infarct. Patient Name: TIFFANI TRAN Medical Record#: [id number] Ordering Physician: Cele Fernandes WRECKER OPERATOR Acct.#: [id number] : 1960 Age: 57 Sex: M Location: [address] [place] [address] Exam Date: 12/03/17 174 ADM Status: ADM Prashanth Order Information: NUCLEAR CARDIAC STRESS TEST Accession Number: [id number] CPT: 26306 INDICATION: Chest pressure, dizziness. COMPARISON: There are no relevant prior studies available for comparison. Technique: A single day myocardial perfusion stress study was performed. Initially the resting study was performed. The patient was given an intravenous injection of 10.9 mCi of technetium 99m tetrofosmin and and the heart was imaged in multiple projections. The patient returned later in the day and under the direction of Dr. Lowry, the patient was given intervenous injection of Lexiscan. Subsequently the patient was given intravenous injection of 25.3 mCi of technetium 99m tetrofosmin and the heart was imaged in multiple projections. Images were reconstructed in the axial, sagittal and coronal planes and in a 3- D format. FINDINGS: There appears to be normal wall motion and myocardial thickening. The left ventricular ejection fraction was calculated to be 64%. Review of the images demonstrates decreased activity in the inferior wall on both the post pharmacologic stress and resting images which is no longer present on the attenuation corrected images consistent with attenuation artifact. No other focal abnormalities are seen. IMPRESSION: NO EVIDENCE FOR INFARCT OR ISCHEMIA. ASSESSMENT: Low risk. Based on imaging criteria from ACC/AHA 2002 Guideline Update for the Management of Patients With Chronic Stable Angina Table 23. Noninvasive Risk Stratification. <Electronically signed by Sachin Herring MD in [place]> 12/03/17 1153 Dictated By: Sachin Herring MD Dictated Date/Time: 12/03/17 1153 Transcribed Date/Time: 12/03/17 1147 Copy to: Assess/Plan/Problems-Billing Assessment: This is a 57 year old male with history of large CVA in the past that presents with chest pressure and near syncopal event. - Patient Problems (1) Near syncope Current Visit: Yes Status: Acute Comment: - Imaging as above, no acute neuro pathology - Large area of encephalomalacia from previous CVA - stress test is low risk - ECHO EF 60-65% - WNL (2) History of cerebrovascular accident with residual deficit Current Visit: Yes Status: Acute Code(s): I69.30 - UNSPECIFIED SEQUELAE OF CEREBRAL INFARCTION SNOMED Code(s): 238278260 Comment: - Speech/swallow eval, as patient states he has difficulty eating - PPI daily and carafate added before meals - Regular diet recommended by speech - Nutrition following, high risk for malnutrition but unable to ascertain base weight - Continue gabapentin TID for neuropathic pain - Unclear as to whether patient was recommended to be on anti-platelet therapy - Will given aspirin, recommend ASA at discharge (3) Depressive disorder Current Visit: No Status: Acute Priority: High Onset Date: 02/23/15 Code (s): F32.9 - MAJOR DEPRESSIVE DISORDER, SINGLE EPISODE, UNSPECIFIED SNOMED Code(s): 53429303 Comment: - Appears to be related to social issues and residual stroke deficits - Social work consulted, there is an open APS case with field case manager assigned - Xanax PRN - uncertain if patient has difficult making meals at home, - patient is not interested in meals on wheels - patient states today that he wants to kill himself- will continue with consult to psych (4) DVT prophylaxis Current Visit: Yes Status: Acute Code(s): CFD8161 - SNOMED Code(s): 809542170 Comment: HSQ (5) Full code status Current Visit: Yes Status: Acute Code(s): Z78.9 - OTHER SPECIFIED HEALTH STATUS SNOMED Code(s): 311430642 Status and Disposition: Coordinate discharge with social work to ensure APS will meet patient at his trailer and assist with resources and medications for safe discharge. Recommend follow up with [facility] and find a PCP to follow in the community.
[2017-12-06] MEDS ORDERED: Levothyroxine TAB* 75 MCG TAB PO SCH (06:45)
[2017-12-06] MEDS: Heparin VIAL(*) 5000 UNITS/ML VIAL (FIVE THOUSAND) SUBCUT SCH ×3 (07:29→20:51)
[2017-12-06] MEDS: Omeprazole CAP* 20 MG PO SCH (07:29)
[2017-12-06] MEDS: Gabapentin CAP(*) 400 MG PO SCH ×3 (10:31→20:51)
[2017-12-06] MEDS: Aspirin 81 mg CHEW TAB* 81 MG TAB.CHEW PO SCH (10:31)
[2017-12-06] MEDS: Lisinopril TAB* 10 MG PO SCH (10:31)
[2017-12-06] MEDS: Sucralfate TAB* 1 GM PO SCH ×4 (10:32→21:45)
--- NOTE | 2017-12-06 11:43 | PN ---
Subjective Date of Service: 12/06/17 Interval History: Mr. Henry does not provider much subjective data this morning. He denies N/V/D , chest pain, SOB. Reports occasional abd pain which he denies during my exam. He denies any suicidal ideations. Would like to be d/c'd home, but is agreeable to waiting for psych consult. Family History: Unchanged from Admission Social History: Unchanged from Admission Past Medical History: Unchanged from Admission Objective Active Medications: Acetaminophen (Tylenol Tab*) 650 mg PO Q6H PRN Alprazolam (Xanax Tab*) 0.25 mg PO BID PRN Aspirin (Aspirin 81 Mg Chew Tab*) 81 mg PO DAILY [facility] Docusate Sodium (Colace Cap*) 100 mg PO BID [facility] Gabapentin (Neurontin Cap(*)) 800 mg PO TID [facility] Heparin Sodium (Porcine) (Heparin Vial(*)) 5,000 units SUBCUT Q8HR [facility] Lisinopril (Prinivil Tab*) 20 mg PO DAILY [facility] Magnesium Hydroxide (Milk Of Magnesia Liq*) 30 ml PO Q6H PRN Omeprazole (Prilosec Cap*) 20 mg PO DAILY@0600 [facility] Sucralfate (Carafate*) 1 gm PO QID [facility] Vital Signs - 8 hr 12/06/17 12/06/17 12/06/17 03:38 07:39 10:31 Temperature 98.9 F 97.8 F Pulse Rate 47 46 Respiratory 18 18 16 Rate Blood Pressure 107/67 122/72 (mmHg) O2 Sat by Pulse 98 99 Oximetry Oxygen Devices in Use Now: None Appearance: Elderly disheveled male laying in bed in no acute distress. Eyes: No Scleral Icterus, PERRLA Ears/Nose/Mouth/Throat: NL Teeth, Lips, Gums, Mucous Membranes Moist Neck: NL Appearance and Movements; NL JVP, Trachea Midline Respiratory: Symmetrical Chest Expansion and Respiratory Effort, Clear to Auscultation Cardiovascular: NL Sounds; No Murmurs; No JVD, RRR, No Edema Abdominal: NL Sounds; No Tenderness; No Distention, No Hepatosplenomegaly Extremities: No Edema Skin: No Rash or Ulcers Neurological: Alert and Oriented x 3 Lines/Tubes/Other Access: Clean, Dry and Intact Peripheral IV Nutrition: Taking PO's Result Diagrams: 12/02/17 16:14 12/02/17 16:14 Assess/Plan/Problems-Billing Assessment: This is a 57 year old male with history of large CVA in the past that presents with chest pressure and near syncopal event. - Patient Problems (1) Near syncope Current Visit: Yes Status: Acute Priority: High Comment: - Imaging as above, no acute neuro pathology - Large area of encephalomalacia from previous CVA - Stress test is low risk - Echo shows EF 60-65% (2) Depressive disorder Current Visit: Yes Status: Acute Priority: High Onset Date: 02/23/15 Code(s): F32.9 - MAJOR DEPRESSIVE DISORDER, SINGLE EPISODE, UNSPECIFIED SNOMED Code(s): 35898191 Comment: - Appears to be related to social issues and residual stroke deficits - Social work consulted, there is an open APS case with outpatient case manager assigned - Popeye RONDON - Appreciate psych consult (3) History of cerebrovascular accident with residual deficit Current Visit: Yes Status: Chronic Priority: High Code(s): I69.30 - UNSPECIFIED SEQUELAE OF CEREBRAL INFARCTION SNOMED Code(s): 357159248 Comment: - Speech recommeded regular diet - Nutrition following, high risk for malnutrition but unable to ascertain base weight - Continue gabapentin for neuropathic pain - Unclear as to whether patient was recommended to be on antiplatelet therapy - Will given aspirin, recommend ASA at discharge (4) Full code status Current Visit: Yes Status: Acute Priority: High Code(s): Z78.9 - OTHER SPECIFIED HEALTH STATUS SNOMED Code(s): 695036315 (5) DVT prophylaxis Current Visit: Yes Status: Acute Priority: High Code(s): DSV4747 - SNOMED Code(s): 036204428 Comment: - Heparin SQ Status and Disposition: Inpatient pending psych consult.
[2017-12-06] MEDS: Magnesium Hydroxide LIQ* 30 ML UDC PO PRN ×2 (15:49→20:50)
--- NOTE | 2017-12-06 19:38 | CONS ---
CONSULTATION REPORT: DATE OF CONSULT: 12/06/17 ATTENDING CLINICIAN: Kayla Cruz NP CONSULTING PHYSICIAN: Dr. Ramone Santana. REASON FOR CONSULT: Suicidal ideations. SUBJECTIVE HISTORY: Psychiatry is asked to see this 57-year-old single white male, with a history of right-sided hemiparesis and expressive aphasia secondary to a stroke in 2016, who has further history of depressive episodes and alcoholism, due to suicidal statements he made around the time of admission. I spoke with his hospitalist, Kayla Cruz NP, who indicates that the patient has not been taking care of himself in a trailer that he resides in in [place], [place]. When he arrived, he made some suicidal statements, but he has been denying them consistently thereafter. He had a near syncopal episode in a grocery store while attempting to shop for himself, which led to hospitalization; however, at this time, he is medically cleared. In addition to suicidal ideations, there are also questions with respect to whether he is safe to return home. Prior to seeing the patient, I did see social work notes that indicate that the patient has an APS vibration technician named Jamila Gr, who occasionally visits him at home and will help him get groceries. Other information is available from a behavioral science unit admission in January of 2015. At that time, this was previous to the patient's stroke and he arrived on the [facility] primarily for suicidal ideations in the context of alcohol abuse. When I meet with the patient, he is obviously right-sided hemiparetic and appears to be in great distress over his difficulty articulating. His aphasia is both verbal as well as graphic as he has similar difficulties writing his thoughts as he does speaking them. Nonetheless, he is able to communicate with me. Through direct communication, I am able to ascertain that he was only recently placed on disability and has had chronic shortage of money , being unemployed even prior to his stroke. He expresses great frustration at his father, who used to support him financially. Apparently, the father is having an affair and a prolonged relationship with the patient's maternal half sister, who is very unsupportive of the patient. The patient expresses to me that he used to travel the country working for the [employer]. 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 The patient does endorse several neurovegetative symptoms of depression including some sleep disturbance, anhedonia, energy, and concentration disturbance, and psychomotor slowing; however, at this time, he is steadfastly denying suicidal ideations. I did discuss the topic of going back on an antidepressant, but he declines that at this time. I also offered him hospitalization on the BSU to which he responded "no, I want to go home." The patient feels like he is doing an adequate job of packing his own medications, dressing himself, and taking care of ADLs. He claims that he needs only the assistance of his Adult Protective Services vibration technician. He does complain bitterly of poor pain management. He is able to state that his provider is Dr. Rodas at the [facility] here in [place]. PAST PSYCHIATRIC HISTORY: The patient had a psychiatric admission on the BSU in January of 2015, at which time he was treated with a combination of prazosin and Paxil. In addition, he has been on Xanax and Ambien in the past. He has no formal history of suicide attempts; however, he has had depression for over 20 years. SUBSTANCE ABUSE HISTORY: Significant for severe alcohol abuse. He has received DWI charges in the past. He does endorse cannabis use and states that this is helpful for pain management, but that he cannot afford the street version of this substance. He does smoke cigarettes daily. The patient denies recent alcohol use stating that he cannot afford beer or liquor. PAST MEDICAL HISTORY: Significant for sleep apnea, hypertension, left-sided stroke in 2016. FAMILY HISTORY: Noncontributory. SOCIAL HISTORY: The patient reports being raised in a dysfunctional family environment. His mother is now . The patient went to [employer] near [place], [place], where he got a degree in physics, then went on to work in [place], mostly employed by [employer]. 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 He has been unemployed for several years now and recently receiving disability payments. He has always been single and never had any children. Has history of one DWI, but that is his only legal history. MENTAL STATUS EXAM: The patient is a middle-aged white male, who is disheveled , baltazar, appears to be significantly older than his stated age. He is unkempt with long tangled hair. He is dressed in a patient gown. He makes good eye contact. It is easily notable that he has motor disturbance of the right side. Speech is limited due to expressive aphasia secondary to stroke. Mood is depressed with a constricted affect. Thought process is linear and goal directed. Thought content is significant for his frustration being in the hospital. He denies suicidal or homicidal ideations. He denies auditory or visual hallucinations. Insight and judgment are somewhat impaired given his refusal for psychiatric treatment at this time. Cognitively, he is awake and alert with what would appear to be an average intellect. DIAGNOSES: [place] I: Major depressive disorder, recurrent, moderate; alcohol use disorder by history. [place] II: Deferred. ASSESSMENT: The patient is a 57-year-old single white male with a history of severe left-sided stroke in 2016 rendering him with right-sided weakness and expressive aphasia, who was admitted to the hospitalist service for a syncopal episode on 12/02/17, who apparently made suicidal statements upon admission. The patient is currently denying suicidal ideations and he denies the need for psychiatric intervention. He is mostly fixated on pain management requesting additional pain medications and referral to a pain clinic for possible medical cannabis. RECOMMENDATIONS TO PRIMARY TEAM: The patient denies suicidal ideations and is declining voluntary psychiatric hospitalization. I did broach the topic of antidepressant medications; however, he is declining that at this time. He seems mostly focused on pain issues and it may not be a bad idea to request a consultation from the pain management team. I see no psychiatric barriers to discharge at this time; however, I do see that the patient would benefit from beefing up outpatient supports such as the possibility for at-home nursing. He is agreeable with considering that at this time. For now, Psychiatry is signing off, but can be reconsulted in the event that there are any significant changes in the patient's care or presentation. [id number]/CPS #: [id number] GERALD
[2017-12-06] MEDS: Docusate CAP* 100 MG PO SCH (20:51)
[2017-12-06] MEDS: Acetaminophen TAB* 325 MG PO PRN (20:51)
[2017-12-07] MEDS: Heparin VIAL(*) 5000 UNITS/ML VIAL (FIVE THOUSAND) SUBCUT SCH ×2 (05:08→15:38)
[2017-12-07] MEDS: Omeprazole CAP* 20 MG PO SCH (05:08)
[2017-12-07] MEDS: Magnesium Hydroxide LIQ* 30 ML UDC PO PRN (07:59)
[2017-12-07] MEDS: Gabapentin CAP(*) 400 MG PO SCH ×2 (07:59→15:37)
[2017-12-07] MEDS: Sucralfate TAB* 1 GM PO SCH ×2 (07:59→15:37)
[2017-12-07] MEDS: Aspirin 81 mg CHEW TAB* 81 MG TAB.CHEW PO SCH (07:59)
[2017-12-07] MEDS: Docusate CAP* 100 MG PO SCH (07:59)
[2017-12-07] MEDS: Lisinopril TAB* 10 MG PO SCH (07:59)
[2017-12-07 12:13] VITALS: BP 135/77
--- NOTE | 2017-12-08 04:21 | DS ---
CC: Dr. Alejandro Rodas; Dr. Ramone Santana * DISCHARGE SUMMARY: DATE OF ADMISSION: 12/02/17 DATE OF DISCHARGE: 12/07/17 PRIMARY CARE PROVIDER: Dr. Alejandro Rodas. ATTENDING PHYSICIAN: Dr. Phuong Matt * (dictated by Kayla Cruz NP). PRIMARY DIAGNOSES: 1. Near syncope. 2. Suicidal ideation. SECONDARY DIAGNOSES: 1. Depression. 2. Cerebrovascular accident in 2016. 3. Remote history of alcohol abuse. STUDIES WHILE IN THE HOSPITAL: 1. Brain CT on 12/02/17 reads as no evidence for acute intracranial abnormalities, old left middle cerebral artery infarct. 2. Chest x-ray on 12/02/17 reads as no evidence for acute findings. 3. Transthoracic echocardiogram on 12/02/17 reads as mild concentric left ventricular hypertrophy, normal left ventricular systolic function, estimated ejection fraction of 60% to 65%, right ventricular chamber size and systolic function are within normal limits. There is mild dilation of the ascending aorta. There is moderate dilation of the aortic root. 4. Brain MRI on 12/02/17 reads as no evidence of acute infarct, chronic large left MCA territory infarct. 5. Nuclear stress test on 12/03/17 reads as no evidence for infarct or ischemia , low risk assessment. CONSULTATIONS WHILE IN THE HOSPITAL: Dr. Santana saw the patient in consultation on 12/06/[address] Santana noted that the patient declined any antidepressant medications. He felt that there were no barriers for discharge, although the patient would benefit from outpatient support such as visiting nurses. Psychiatry signed off. DISCHARGE MEDICATIONS: New medications: 1. Aspirin 81 mg p.o. daily. Continued home medications: 1. Gabapentin 800 mg p.o. t.i.d. 2. Lisinopril 20 mg p.o. daily. HISTORY OF PRESENT ILLNESS AND HOSPITAL COURSE: Mr. Schmitz is a 57-year-old male with a past medical history of hypertension, CVA, and depression, who presented on 12/03/17 with complaints of dizziness and chest pressure. Please see the history and physical by Cele Fernandes NP for a complete summary of the events leading up to this hospitalization; but in short, the patient was in [place] with his Adult Protective Services worker when he began feeling dizziness and a diffuse pressure across his chest. He was assisted to the floor. EMS was called. While in the emergency room, the patient was placed on supplemental oxygen, which he felt improved his symptoms. All imaging in the emergency room was unremarkable. Troponins were 0.00 x3. Toxicology was unremarkable. Urinalysis was unremarkable. The patient had a full cardiac workup here in the hospital, which was unremarkable. He had no further episodes of dizziness, near syncope, or chest pain. I will note that the patient does have residual deficits from his 2016 CVA (significant expressive aphasia and mild right-sided weakness) and is noted to have a large area of encephalomalacia on imaging. It is unclear what precipitated his dizziness prior to admission, though this could be related to a number of factors including, but not limited to encephalomalacia, anxiety or gait instability. While in the hospital, the patient was noted to have some suicidal ideations. Because of this, Psychiatry was asked to consult as noted above. As of the day of discharge, the patient was also evaluated by Physical Therapy, who determined that the patient appeared to be at his baseline and was stable for discharge back home with recommendations for outpatient physical therapy. His right-sided weakness and expressive aphasia appeared to be at his baseline and he denies any further suicidal ideations or plans. Mr. Schmitz is stable for discharge home today. Vital signs are as follows: Temp 98.4, heart rate 50, respiratory rate 16, oxygen saturation 97% on room air , blood pressure 135/77. DISCHARGE PLAN: Mr. Schmitz will be discharged back home. Activity will be as tolerated. Diet will be regular as tolerated. Medications are listed above. Though the patient will resume his normal medications and should also start taking aspirin 81 mg daily, which he has taken throughout this admission. He has been referred to Visiting Nurse Services and will continue follow up with his APS worker. He has an appointment with his primary care provider on for followup at which time he has been instructed to speak with his PCP regarding the need for further outpatient psychiatric treatment. The patient has been instructed to return to the emergency room or nearest hospital for any worsening of symptoms, shortness of breath, lightheadedness, dizziness, chest discomfort, high fever, chills, night sweats, loss of consciousness or any other worrisome signs or symptoms. The patient is in agreement with the plan for discharge. This is a summarized report of a complex medical history of and hospital stay. For further details, please see the patient entire medical record. TIME SPENT: Approximately 45 minutes were spent on this discharge. Greater than half of that time was spent [id number] with the patient discussing discharge plans and instructions. KAYLA CRUZ NP [id number]/CPS #: [id number] GERALD
== END 2017-12-07 15:38 | disposition home health service (06) | DRG 204 ==
LOC: ED 15:44 → MEDTELE 17:39 → OBSVTOIN 12-03 18:00 → INTOOBSV 12-03 18:00 → UNDODISOB 12-07 15:38
PROVIDERS: ADMIT Internal Medicine; ATTEND Internal Medicine
DX: R55 Syncope and collapse (principal); R45.851 Suicidal ideations; F33.1 Major depressive disorder, recurrent, moderate; I69.351 Hemiplegia and hemiparesis following cerebral infarction affecting right dominant side; I10 Essential (primary) hypertension; F17.210 Nicotine dependence, cigarettes, uncomplicated; R07.89 Other chest pain; G57.91 Unspecified mononeuropathy of right lower limb; F41.9 Anxiety disorder, unspecified; G89.29 Other chronic pain; F43.10 Post-traumatic stress disorder, unspecified; R40.2412 Glasgow coma scale score 13-15, at arrival to emergency department; G47.30 Sleep apnea, unspecified; I77.819 Aortic ectasia, unspecified site; I51.7 Cardiomegaly; R26.9 Unspecified abnormalities of gait and mobility; I69.398 Other sequelae of cerebral infarction; I69.320 Aphasia following cerebral infarction; Z56.0 Unemployment, unspecified; Z23 Encounter for immunization; Z79.82 Long term (current) use of aspirin
CPT/HCPCS: 36415; 70450; 70551; 71046; 78452; 80053; 80307; 80320; 81003; 82140; 82550; 83605; 83735; 83880; 84443; 84484; 85025; 85730; 90471; 90686; 90732; 93005; 93017; 93306; 99284; A9270-GY; A9502; G0008; G0378; G0480; G8996-GN-CH; G8997-GN-CH; G8998-GN-CH; J1644; J2785

== ENCOUNTER 2018-07-27 10:24 | Day surgery (SDC) | payer OTHER ==
[~2018-07-27 10:24] MED LIST: Buffered Lidocaine 1% SYRIN* 1 ML/SYRINGE INTRADERM ONE; Lactated Ringers 1000 ML Bag* 1,000 ML IV SCH
[2018-07-27] MEDS ORDERED: Buffered Lidocaine 1% SYRIN* 1 ML/SYRINGE INTRADERM ONE (10:35)
[2018-07-27] MEDS ORDERED: fentaNYL* 50 MCG/ML 2 ML VIAL (100 MCG VIAL) ONE (10:47)
[2018-07-27] MEDS ORDERED: Midazolam* 1 MG/ML 2 ML VIAL (2 MG) ONE (10:47)
[2018-07-27] MEDS ORDERED: Famotidine IV* 10 MG/ML 2 ML (20 mg) ONE (11:52)
[2018-07-27] MEDS ORDERED: Lidocaine 2% PF * 5 ML VIAL ONE (12:00)
[2018-07-27] MEDS ORDERED: diPHENhydraMINE IV* 50 MG/ML 1 ml VIAL (BENADRYL) ONE (12:00)
[2018-07-27] MEDS ORDERED: Propofol* 10 MG/ML 20 ML BTL ONE (12:00)
[2018-07-27] MEDS ORDERED: KETAMINE HCL* 50 MG/ML 10 ML VIAL ONE (12:06)
[2018-07-27] MEDS ORDERED: Levalbuterol 1.25MG/0.5ML NEB INH PRN (12:12)
[2018-07-27] MEDS ORDERED: Acetaminophen TAB* 325 MG PO PRN (12:12)
[2018-07-27] MEDS ORDERED: Ondansetron INJ* 2 MG/ML VIAL IV PRN (12:12)
[2018-07-27] MEDS ORDERED: Naloxone* 0.4 MG/ML 1 ML VIAL IV PRN (12:12)
[2018-07-27] MEDS ORDERED: DiMENhydriNATE IV* 50 MG/ML VIAL IV PUSH PRN (12:12)
[2018-07-27] MEDS ORDERED: EPHEDrine (Pressors)* 50 MG/ML VIAL ONE (12:46)
[2018-07-27 14:35] VITALS: BP 100/60
--- NOTE | 2018-07-27 17:21 | PRO ---
CC: Alejandro Rodas MD* PROCEDURE REPORT: DATE OF PROCEDURE: 07/27/18 PROCEDURE: Colonoscopy with snare polypectomy with clip placement as well as jumbo biopsy polypectomy. REFERRING PROVIDER: Alejandro Rodas MD INDICATIONS: The patient has a family history of colon cancer in his mother. Also with 8 polyps removed on colonoscopy in December 2017. At that colonoscopy , there was a 1.5-2 cm subtle sessile polyp in the cecal base. This polyp did not lift well, particularly in the central portion. Decision was made to biopsy this polyp. Biopsies read as hyperplastic polyp. This was reviewed with Pathology and deeper levels continued to demonstrate hyperplastic polyp without evidence of SSA or dysplasia. Scheduled for repeat colonoscopy to remove this polyp. Anesthesia scheduled as the patient was quite awake with moderate sedation during last procedure. MEDICATIONS: Given by Anesthesia. DESCRIPTION OF PROCEDURE: Full disclosure of risks was reviewed with the patient as detailed on the consent form. The patient was placed in the left lateral decubitus position and monitored with continuous pulse oximetry, capnography, interval blood pressure monitoring, and direct observation. After anorectal examination was performed, the adult colonoscope was inserted into the rectum and slowly advanced forward to the level of the cecum. Procedure was challenging due to a floppy colon with looping of the colonoscope. Ultimately, the scope was able to reach the cecum. Complete views were obtained including the medial wall between the IC valve and the appendical orifice. Quality of the prep was good in the right colon, although the prep was only fair in the left colon. A significant amount of suctioning was required to obtain adequate views of the colon. Careful inspection was made as the colonoscope was withdrawn. Retroflexion was performed in the rectum. Findings and interventions are described below. FINDINGS: Anorectal exam was unremarkable. Scope was inserted into the rectum and slowly advanced forward to the level of the cecum. Procedure was challenging as above. In the cecum, the previously identified sessile polyp was visualized. This polyp was at least a centimeter and a half and was quite subtle. The central portion was mildly depressed compared to the outer portion of the polyps. Eleview was used as a submucosal lifting agent with decent effect. Unfortunately, the center of the polyp again did not lift well. Polyp was removed piecemeal. Jumbo biopsy was used to remove the central portion of the polyp followed by fulguration of this area using the tip of the snare. One clip was used to close a portion of the polypectomy site. Polyp tissue was retrieved. Scope was then slowly withdrawn. In the transverse colon, there was a 4 mm polyp which was removed with two passes using jumbo biopsy forceps. Scope was then withdrawn from the patient. The patient tolerated the procedure well and was recovered in the GI recovery area. IMPRESSION: 1. Complete colonoscopy to cecum. 2. Large sessile polyp in cecum. Submucosal lift and piecemeal resection performed. Central portion of the polyp did not lift well raising concern for more advanced pathology. Biopsy used to remove tissue from this area followed by fulguration using tip of snare. One clip used for prophylaxis at the polypectomy site. 3. Small transverse colon polyp removed as above. FOLLOW-UP: 1. Await pathology. Timing of repeat colonoscopy to depend on pathology results. Thank you very much for this referral. [id number]/CPS #: [id number] GERALD
== END 2018-07-27 15:16 | disposition home or self-care (01) ==
LOC: OR 10:24
PROVIDERS: ATTEND Internal Medicine Gastroenterology
DX: D12.0 Benign neoplasm of cecum (principal); Z86.010 Personal history of colon polyps; Z80.0 Family history of malignant neoplasm of digestive organs; K63.5 Polyp of colon; I10 Essential (primary) hypertension; F17.210 Nicotine dependence, cigarettes, uncomplicated; I69.320 Aphasia following cerebral infarction; F41.8 Other specified anxiety disorders
CPT/HCPCS: 88305; J1200; J2250; J2704; J3010

== ENCOUNTER 2019-05-02 22:41 | Emergency (ER) | payer OTHER ==
[2019-05-02] MEDS ORDERED: Ketorolac INJ* 30 MG/ML 1 ML VIAL IM ONE (23:14)
[2019-05-02] MEDS ORDERED: Gabapentin CAP(*) 300 MG PO ONE (23:14)
--- NOTE | 2019-05-02 23:16 | ED ---
Complex/Multi-Sys Presentation - HPI Summary HPI Summary: 58 year old male presents with acute on chronic pain of the entire right side. States the pain is increasing over the past couple weeks. he has history of CVA and pain since. pain is from face all way down to toes on right side. He ran out of his gabapentin for past days and then pain is unbearable. States this pain is the same as his normal pain just as been becoming more intense over the past couple weeks. He denies any cough. No urinary symptoms. No fevers. No new chest pain or shortness of breath. He has been on gabapentin for a while. - History Of Current Complaint Chief Complaint: EDGeneral Time Seen by Provider: 05/02/19 22:59 - Allergies/Home Medications Allergies/Adverse Reactions: Allergies Allergy/AdvReac Type Severity Reaction Status Date / Time No Known Allergies Allergy Verified 01/25/19 10:12 Home Medications: Home Medications Gabapentin CAP(*) [Neurontin 400 mg CAP(*)] 800 mg PO TID 12/02/17 [History Confirmed 05/02/19] Lisinopril TAB* [Prinivil TAB 10 MG*] 20 mg PO QAM 12/02/17 [History Confirmed 05/02/19] Pantoprazole TAB (NF) 1 cap PO QAM 07/21/18 [History Confirmed 05/02/19] PMH/Surg Hx/FS Hx/Imm Hx Endocrine/Hematology History: Denies: Hx Anticoagulant Therapy Cardiovascular History: Reports: Hx Angina, Hx Hypertension Denies: Hx Coronary Artery Disease, Hx Hypercholesterolemia, Hx Pacemaker/ICD , Hx Valvular Heart Disease, Other Cardiovascular Problems/Disorders Respiratory History: Reports: Other Respiratory Problems/Disorders - current smoker Denies: Hx Asthma, Hx Chronic Obstructive Pulmonary Disease (COPD), Hx Sleep Apnea GI History: Reports: Other GI Disorders - Acute abd pain only after ingesting food, Colon polyps,diarrhea History: Denies: Other Problems/Disorders Musculoskeletal History: Reports: Other Musculoskeletal History - Left femur ORIF Sensory History: Denies: Hx Contacts or Glasses, Hx Hearing Aid Opthamlomology History: Denies: Hx Contacts or Glasses Neurological History: Reports: Hx CVA, Other Neuro Impairments/Disorders - 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 Colonoscopy 2018. Right shoulder. Inguinal Hernia. Tonsillectomy. colonoscopy w/polyp removal 2018 Hx Anesthesia Reactions: No Infectious Disease History: No Infectious Disease History: Denies: Traveled Outside the [place] in Last 30 Days - Family History Known Family History: Positive: Unknown - pt does not know - Social History Alcohol Use: Rare Alcohol Amount: Beer Hx Substance Use: Yes Substance Use Type: Reports: None Hx Tobacco Use: Yes Smoking Status (MU): Heavy Every Day Tobacco Smoker Type: Cigarettes Amount Used/How Often: 1 PPD for many years apprx 40 years Review of Systems Negative: Fever Negative: Chest Pain Negative: Shortness Of Breath Positive: Myalgia - right side pain All Other Systems Reviewed And Are Negative: Yes Physical Exam Triage Information Reviewed: Yes Vital Signs On Initial Exam: Initial Vitals Temp Pulse Resp BP Pulse Ox 97.5 F 83 22 170/100 98 05/02/19 22:42 05/02/19 22:42 05/02/19 22:42 05/02/19 22:42 05/02/19 22:42 Vital Signs Reviewed: Yes Appearance: Positive: Well-Appearing Skin: Positive: Warm, Dry Head/Face: Positive: Normal Head/Face Inspection Eyes: Positive: Normal, Conjunctiva Clear ENT: Positive: Pharynx normal Respiratory/Lung Sounds: Positive: Clear to Auscultation, Breath Sounds Present Cardiovascular: Positive: Normal, RRR Abdomen Description: Positive: Nontender, Soft Bowel Sounds: Positive: Present Musculoskeletal: Positive: Strength/ROM Intact - right leg, Other - good pulses Neurological: Positive: Normal Psychiatric: Positive: Normal Procedures - Sedation Patient Received Moderate/Deep Sedation with Procedure: No Diagnostics - Vital Signs Vital Signs Temp Pulse Resp BP Pulse Ox 05/02/19 22:42 97.5 F 83 22 170/100 98 - Laboratory Lab Statement: Any lab studies that have been ordered have been reviewed, and results considered in the medical decision making process. Complex Multi-Symp Course/Dx Course Of Treatment: 58 year old male presents with acute on chronic pain of the entire right side. States the pain is increasing over the past couple weeks. he has history of CVA and pain since. pain is from face all way down to toes on right side. He ran out of his gabapentin for past days and then pain is unbearable. States this pain is the same as his normal pain just as been becoming more intense over the past couple weeks. He denies any cough. No urinary symptoms. No fevers. No new chest pain or shortness of breath. He has been on gabapentin for a while. On exam lungs CTA. abd soft nontender. Good strength in lower extremities. No neuro deficits noted. Gave dose of gabapentin and Toradol. explained can not prescribe anything stronger as this is a chronic pain issue. Told follow up with primary for continue pain management. Patient understands agrees plan. - Diagnoses Differential Diagnoses/HQI/PQRI: Urinary Tract Infection, Other - muscle sprain , fracture Provider Diagnoses: Chronic pain Discharge ED - Sign-Out/Discharge Documenting (check all that apply): Patient Departure - Discharge Plan Condition: Good Disposition: HOME Referrals: Alejandro Rodas MD [Primary Care Provider] - Additional Instructions: Follow up with primary for continued pain management Add on acetaminophen 650mg every 6 hours Return to ED if develop any new or worsening symptoms - Billing Disposition and Condition Condition: GOOD Disposition: Home
[2019-05-02] MEDS ORDERED: Gabapentin CAP(*) 400 MG PO ONE (23:17)
[2019-05-02 23:35] VITALS: BP 0/0
== END 2019-05-02 23:33 | disposition home or self-care (01) ==
LOC: ED 22:41
DX: G89.29 Other chronic pain (principal); I10 Essential (primary) hypertension; Z86.73 Personal history of transient ischemic attack (TIA), and cerebral infarction without residual deficits; Z79.899 Other long term (current) drug therapy; F17.210 Nicotine dependence, cigarettes, uncomplicated
CPT/HCPCS: 96372; 99282; J1885